=== PATIENT | female | born 2005 | race Two or more races ===

== ENCOUNTER 2024-06-21 11:33 | Emergency (ER) | payer MEDICAID, SELFPAY ==
--- NOTE | 2024-06-21 12:26 | XR_ITS ---
Examination: PA lateral chest 2 views TECHNIQUE: Upright PA lateral chest 2 views Exam date and time: June 21, 2024 1240 hours INDICATIONS: Fever 5 days FINDINGS: Significant pneumonia posterior basal segment right lower lobe Normal heart size No pulmonary edema IMPRESSION: Significant pneumonia posterior basal segment right lower
--- NOTE | 2024-06-21 12:27 | EDNOTE_ITS ---
<Statement entered by Piedad Ortiz MD - 06/28/24 12:01> As co-signing physician, I was present and available for consult prn. I concur with the plan and care as documented by the midlevel provider. Upper Respiratory Inf. RME/HPI General Chief Complaint: Flu Like Symptoms Stated Complaint: FEVER, CHILLS, COUGH, SOB Time Seen by Provider: 06/21/24 12:27 Source: patient Arrival date/time: 06/21/24 11:33 19-year-old female with a history of asthma presents to the emergency room with a chief complaint of fever, chills, cough, shortness of breath x 2 days. Mode of arrival: ambulatory Limitations: no limitations Related Data Previous Rx's ?Medication ?Instructions ?Recorded acetaminophen 325 mg capsule 650 mg (2 x 325 mg) PO QID PRN 06/21/24 fever or pain 7 days #30 caps azithromycin 250 mg tablet See Rx Instructions PO .COMPLEX #6 06/21/24 (Zithromax Z-Jerman) tabs Allergies Allergy/AdvReac Type Severity Reaction Status Date / Time bee venom protein (honey bee) Allergy Severe Anaphylaxis Verified 06/21/24 11:37 Review of Systems Review of Systems Systems Reviewed: All systems reviewed, normal except as documented Constitutional Constitutional: Reports system reviewed and no additional complaints, except as documented, Denies fatigue, Reports fever(s), Denies headache(s) and Reports weakness Eyes Eyes: Reports system reviewed and no additional complaints, except as documented, Denies blurry vision and Denies change in vision ENT Ears, Nose, Mouth, and Throat: Reports system reviewed and no additional complaints, except as documented, Denies otalgia, Denies headache(s), Reports nasal congestion, Denies throat swelling and Denies vertigo Cardiovascular Cardiovascular: Reports system reviewed and no additional complaints, except as documented, Denies chest pain, Reports dyspnea and Denies dyspnea on exertion Respiratory Respiratory: Reports system reviewed and no additional complaints, except as documented, Reports chest congestion, Reports cough, Reports dyspnea, Denies dyspnea on exertion and Denies wheezing Gastrointestinal Gastrointestinal: Reports system reviewed and no additional complaints, except as documented, Denies abdominal pain, Denies cramping, Denies nausea and Denies vomiting Genitourinary Genitourinary: Reports system reviewed and no additional complaints, except as documented Musculoskeletal Musculoskeletal: Reports system reviewed and no additional complaints, except as documented and Denies back pain Integumentary/Breasts Skin/Breast: Reports system reviewed and no additional complaints, except as documented and Denies wounds Neurologic Neurologic: Reports system reviewed and no additional complaints, except as documented, Denies confusion, Denies headache(s), Denies lack of coordination, Denies vertigo and Reports weakness Psychiatric Psychiatric: Reports system reviewed and no additional complaints, except as documented, Denies anxiety, Denies confusion, Denies depression, Denies paranoia, Denies suicidal ideation and Denies tactile hallucinations Endocrine Endocrine: Reports system reviewed and no additional complaints, except as documented and Denies fatigue Hematologic/Lymphatic Hematologic/Lymphatic: Reports system reviewed and no additional complaints, except as documented and Denies lymphadenopathy Allergic/Immunologic Allergic/Immunologic: Reports system reviewed and no additional complaints, except as documented, Denies throat swelling, Denies urticaria and Denies wheezing Past Medical History Past Medical History NEUROLOGIC: Negative Neurological Disorders CARDIAC: Negative Cardiac Disorders or Congestive Heart Failure RESPIRATORY: Positive Asthma; Negative Chronic Obstructive Pulmonary Disease (COPD) GASTROINTESTINAL: Negative Gastrointestinal Disorders GENITOURINARY: Negative Genitourinary Disorders or Renal Disease REPRODUCTIVE: Negative Pelvic Inflammatory Disease MUSCULOSKELETAL: Negative Musculoskeletal Disorders ENDOCRINE: Negative Endocrine Disorders, Diabetes Mellitus Type 1 or Diabetes Mellitus Type 2 HEMATOLOGIC: Negative Blood Disorders PSYCHO/SOCIAL: Positive Self-Mutilation OTHER HISTORY: Negative Autoimmune Disease, Anesthesia Reactions, Organ Transplant, MRSA, Clostridium Difficile or Cancer Family History FAMILY HISTORY: Positive Family Psychiatric Problems and Family Surgery; Negative Family Cardiac Disorders, Family Cancer or Family Anesthesia Reaction Surgical History SURGICAL: Negative Cardiac Surgery, Endocrine Surgery, Ear Surgery, Abdominal Surgery, Nephrectomy, Joint Replacement, Neurologic Surgery, Mastectomy, Vasectomy or Organ Transplant Social History SMOKING STATUS: Never smoker SUBSTANCE USE: does not use ED Exam General Limitations: Present no limitations General appearance: Present alert and in no apparent distress Head Head exam: Present atraumatic Eye Eye exam: Present normal appearance, PERRL and EOMI ENT ENT exam: Present normal exam, normal oropharynx and mucous membranes moist Neck Neck exam: Present normal inspection, full ROM and trachea midline Chest Chest inspection: Present normal inspection and symmetric chest wall rise Respiratory Respiratory exam: Present normal lung sounds bilaterally; Absent respiratory distress, wheezes, stridor, accessory muscle use or prolonged expiratory phase Cardiovascular Cardiovascular exam: Present regular rate, normal rhythm and normal heart sounds Abdominal Exam Abdominal exam: Present soft and normal bowel sounds Extremities Exam Extremities exam: Present normal inspection and full ROM Back Exam Back exam: Present normal inspection and full ROM Neurological Exam Neurological exam: Present alert, oriented X3 and CN II-XII intact Psychiatric Psychiatric exam: Present normal affect and normal mood Skin Skin exam: Present warm, dry, intact and normal color Course Quality Measures none Orders Category Date Time Status Bedside COVID-19 Antigen Test NOW Care 06/21/24 12:26 Active Bedside Influenza A&B Antigen Test NOW Care 06/21/24 12:26 Completed XR chest 2V Stat Exams 06/21/24 12:26 Completed Blood Culture (Lab) Stat Lab 06/21/24 13:38 Received Lactate (Lactic Acid) Stat Lab 06/21/24 13:38 Completed Procalcitonin Stat Lab 06/21/24 13:38 Completed Acetaminophen Tab [Tylenol ES Tab] Med 06/21/24 13:24 Discontinued 1,000 mg PO X1 ONE Albuterol/Ipratr Rt Erin [Duoneb Rt Erin] Med 06/21/24 12:26 Discontinued 3 ml INH X1 ONE Dexamethasone Inj [Decadron Inj] Med 06/21/24 12:26 Discontinued 10 mg PO X1 ONE cefTRIAXone [Rocephin] 1,000 mg Med 06/21/24 14:51 Discontinued Lidocaine 1% 20 ml [Xylocaine 1% 20 ML] 2.1 ml IM X1 Vital Signs Vital signs: Vital Signs Temperature 100.6 F H 06/21/24 12:31 Pulse Rate 117 H 06/21/24 12:31 Respiratory Rate 21 H 06/21/24 12:31 Blood Pressure 123/84 06/21/24 12:31 Pulse Oximetry (%) 94 L 06/21/24 12:31 Oxygen Delivery Method Room Air 06/21/24 12:31 O2 saturation 96 percent within normal limits Upper Respiratory Infection MDM Narrative MDM Narrative:: 19-year-old female with a history of asthma presents to the emergency room with a chief complaint of fever, chills, cough, shortness of breath x 2 days. Clinically the patient appears nontoxic and in no apparent distress. Physical examination shows mild wheezing to the lower lobes and the patient states she is coughing up phlegm. A chest x-ray was completed and shows extensive pneumonia bilaterally. A breathing treatment was given to the patient as she states this helps her feel better. The patient was febrile at 100.6 and tachycardic. A sepsis alert was called the patient was given medication and reevaluated in 45 minutes with significant improvement to her symptoms. Patient was discharged and educated to follow-up with primary care provider return to the emergency room for any evidence of worsening signs or symptoms Patient data External records reviewed:: [facility] previous records Clinical information provided by:: patient Social determinants that could affect healthcare access:: none Patient has the following chronic illnesses:: No chronic illness How is presenting disease/condition affected by chronic disease/condition?: no chronic disease Evaluation data The following diagnostics were reviewed and interpreted by me:: lab results and radiology exam(s) Lab and/or radiology exams considered but not ordered:: Labs and radiology exams considered and ordered Interpretation Summary: Chest [id number] Medications / Prescriptions Medications or Prescriptions considered but not ordered:: Medication given Medication administrations:: Medication Administration History Discontinued Medications Acetaminophen (Acetaminophen 500 Mg Tablet) 1,000 mg PO X1 ONE Stop: 06/21/24 13:25 Last Admin: 06/21/24 13:55 Dose: 1,000 mg Documented By: MARIPOSA Albuterol/Ipratropium (Albuterol/Ipratropium (Duoneb) Rt Erin 3 Ml Nebu) 3 ml INH X1 ONE Stop: 06/21/24 12:27 Last Admin: 06/21/24 12:55 Dose: 3 ml Documented By: MASON Ceftriaxone Sodium 1,000 mg/ (Lidocaine HCl 2.1 ml) 0 mg IM X1 ONE Stop: 06/21/24 14:52 Last Admin: 06/21/24 14:58 Dose: 2.1 mg Documented By: MARIPOSA Dexamethasone Sodium Phosphate (Dexamethasone Sod Phos Inj 10 Mg/Ml Vial) 10 mg PO X1 ONE Stop: 06/21/24 12:27 Last Admin: 06/21/24 13:55 Dose: 10 mg Documented By: OA Rx given Consultations Consultation(s) initiated? (list below): No Diagnosis Upper Respiratory Differential Diagnosis: upper respiratory infection, viral infection, bronchitis, influenza, pharyngitis and other (Community-acquired pneumonia) Most likely diagnosis given after review of the tests above:: Community-acquired pneumonia Admission Indicated Admission indicated?: not indicated Admission Request Was there a request for admission?: No Disposition Plan Disposition Plan: Discharge Discharge Attestation Discharge Attestation: The patient and all family members were given an opportunity to ask questions and understood the discharge instructions. Discharge instructions specifically effects, indications for sooner follow up or return to the emergency department, and the expected course of current diagnosis. Patient condition: Stable Discharge Plan Plan Patient Disposition: HOME (Self Care) Disposition Comment: Stable Prescriptions/Referrals Prescriptions/Med Rec: New azithromycin [Zithromax Z-Jerman] 250 mg tablet See Rx Instructions .ROUTE .COMPLEX Qty: 6 0RF Rx Instructions: For 250 mg dose pack: take 500 mg today (day 1), then 250 mg for 4 days (days 2-5) acetaminophen 325 mg capsule 650 mg PO QID PRN (Reason: fever or pain) 7 Days Qty: 30 0RF Referrals: Naseem Brewer PA-C [Primary Care Provider] - In 1 week Problem List Clinical Impression: Community acquired pneumonia Patient/Caregiver Discharge Instructions Education Materials: ED Pneumonia (Adult) Additional Instructions: Please follow-up with your primary care provider in the next 24 to 48 hours. X-ray was positive for pneumonia antibiotics are sent to your pharmacy please pick them up and take them as indicated. For any evidence of worsening signs or symptoms please return to the emergency room immediately Print Language: Occitan Stand Alone Forms: Yamile Award Info., Patient Portal Info Letter EMY/ASTON Supervising Physician EMY/ASTON Supervising Physician: Dr. ORTIZ
[2024-06-21 12:31] VITALS: BP 123/84; PULSE 117; RESP 21; TEMP 38.1; O2SAT 94; BMI 38.0
[2024-06-21 12:55] VITALS: PULSE 114; RESP 18; O2SAT 98
[2024-06-21] MEDS: ALBUTEROL/IPRATROPIUM (Duoneb) RT SOL 3 ML NEBU INH (12:55)
[2024-06-21 13:48] LABS: Lactate (Lactic Acid) 1.5 mMol/L (0.4-2.0)
[2024-06-21 13:55] VITALS: TEMP 38.1
[2024-06-21] MEDS: ACETAMINOPHEN 500 MG TABLET 1000 MG PO (13:55)
[2024-06-21] MEDS: DEXAMETHASONE SOD PHOS INJ 10 MG/ML VIAL PO (13:55)
[2024-06-21 14:18] LABS: Procalcitonin 0.13 ng/ml (0.0-0.49)
[2024-06-21 14:35] VITALS: PULSE 115; RESP 16; TEMP 37.3; O2SAT 96
[2024-06-21] MEDS: cefTRIAXone 1,000 MG, LIDOCAINE 1% 20 ML 2.1 ML IM (14:58)
== END 2024-06-21 15:10 | disposition home or self-care (01) ==
PROVIDERS: Nurse Practitioner Family; Emergency Provider Emergency Medicine
DX: J18.9 Pneumonia, unspecified organism (principal); J45.909 Unspecified asthma, uncomplicated
CPT/HCPCS: 36415; 71046; 83605; 84145; 87040; 87400; 87811; 94640; 96372; 99283; A9270; J0696; J1100; J3490